=== PATIENT | female | born 1950 | race Hispanic/Latino ===

== ENCOUNTER 2017-11-03 17:02 | Emergency (ER) | payer OTHER ==
[~2017-11-03] VITALS: Ht 152.4 cm; Wt 113.6 kg
[2017-11-03 19:19] LABS: HEMATOCRIT 36.5 % (36.0-46.0); MCHC 32.9 G/DL (30.0-36.0); MCV 91.3 FL (83-99); PLATELET COUNT 399 K/uL (156-360); RBC DIS.WIDTH-CV 13.9 % (11.8-14.6); RBC DIS.WIDTH-SD 46.9 % (39-53); WHITE BLOOD COUNT 9.5 K/uL (4.1-10.2)
[2017-11-03 19:32] LABS: ALBUMIN 3.4 g/dL (3.2-4.8); CHLORIDE 106 mEq/L (99-109); POTASSIUM 4.1 mEq/L (3.7-5.4); SODIUM 140 mEq/L (136-147)
[2017-11-03 19:34] LABS: GLUCOSE 126 mg/dL (70-99); TOTAL PROTEIN 6.1 g/dL (6.4-8.3)
[2017-11-03 19:36] LABS: TOTAL BILIRUBIN 0.1 mg/dL (0.0-1.0)
[2017-11-03 19:38] LABS: ALKALINE PHOSPHATASE 42 IU/L (3-129); CREATININE 0.8 mg/dL (0.6-1.3); GFR ESTIMATE (CALCULATED) > 59 mL/min/
[2017-11-03 19:39] LABS: UREA NITROGEN (BUN) 17 mg/dL (9-23)
[2017-11-03 19:40] LABS: AST (GOT) 12 IU/L (2-34)
[2017-11-03 19:41] LABS: ALT (GPT) 10 IU/L (3-49)
[2017-11-03 19:45] LABS: TROP-I INTERPRETATION NEGATIVE; TROPONIN-I < 0.01 ng/mL (0.0-0.30)
[2017-11-03 22:02] VITALS: BP 136/67
== END 2017-11-03 22:06 | disposition home or self-care (01) ==
LOC: EME 17:02
PROVIDERS: Emergency Medicine
DX: R53.1 Weakness (principal); E11.65 Type 2 diabetes mellitus with hyperglycemia; I10 Essential (primary) hypertension; Z90.49 Acquired absence of other specified parts of digestive tract
CPT/HCPCS: 71045; 80053; 81003; 83880; 84484; 85027; 93005; 99281; 99284

== ENCOUNTER 2018-01-16 12:12 | Emergency (ER) | payer OTHER ==
[~2018-01-16] VITALS: Ht 162.6 cm; Wt 112.1 kg
[2018-01-16 13:56] LABS: APPEARANCE CLEAR ((CLEAR)); BILIRUBIN NEGATIVE; BLOOD NEGATIVE; COLOR YELLOW ((YELLOW)); GLUCOSE (STRIP) NEGATIVE; KETONES NEGATIVE; LEUKOCYTES TRACE; NITRITE NEGATIVE; PROTEIN (STRIP) NEGATIVE; SPECIFIC GRAVITY 1.021 (1.000-1.030); UROBILINOGEN 0.2 MG/DL (0.2-1.0)
[2018-01-16 13:58] LABS: BACTERIA RARE /HPF; EPITHELIAL CELLS 1+ /HPF; MUCUS TRACE /LPF; RED BLOOD CELLS 0-5 /HPF (0-5); UCUL ADDED? NO; WHITE BLOOD CELLS 0-5 /HPF (0-5)
[2018-01-16] MEDS ORDERED: LIDODERM 5% P1 PATCH TD (14:38)
[2018-01-16] MEDS ORDERED: MOTRIN800 MG PO (14:38)
[2018-01-16] MEDS ORDERED: BACLOFEN10 MG PO (14:38)
[2018-01-16] MEDS ORDERED: VOLTAREN 1% GE100 GM TP (14:38)
[2018-01-16 16:46] LABS: HEMATOCRIT 36.9 % (36.0-46.0); HEMOGLOBIN 12.1 G/DL (11.9-15.5); MCH 30.2 PG (29.0-34.0); MCHC 32.8 G/DL (30.0-36.0); PLATELET COUNT 438 K/uL (156-360); RBC DIS.WIDTH-CV 14.7 % (11.8-14.6); RBC DIS.WIDTH-SD 49.7 % (39-53); RED BLOOD COUNT 4.01 M/uL (3.80-5.20); WHITE BLOOD COUNT 8.7 K/uL (4.1-10.2)
[2018-01-16 16:57] LABS: CHLORIDE 106 mEq/L (99-109); POTASSIUM 4.2 mEq/L (3.7-5.4); SODIUM 140 mEq/L (136-147)
[2018-01-16 16:58] LABS: GLUCOSE 146 mg/dL (70-99)
[2018-01-16 17:02] LABS: CREATININE 0.8 mg/dL (0.6-1.3); GFR ESTIMATE (CALCULATED) > 59 mL/min/
[2018-01-16 17:03] LABS: UREA NITROGEN (BUN) 14 mg/dL (9-23)
[2018-01-16 18:00] VITALS: BP 129/62
== END 2018-01-16 18:00 | disposition home or self-care (01) ==
LOC: EME 12:12
PROVIDERS: Nurse Practitioner Family
DX: M54.5 Low back pain (principal); E11.65 Type 2 diabetes mellitus with hyperglycemia; Z79.84 Long term (current) use of oral hypoglycemic drugs; I10 Essential (primary) hypertension; Z90.49 Acquired absence of other specified parts of digestive tract
CPT/HCPCS: 80048; 81003; 85027; 99281; 99285; J1885